=== PATIENT | female | born 1935 | race Caucasian/White ===

== ENCOUNTER 2018-11-24 12:56 | Emergency (ER) | payer MEDICARE, OTHER ==
[~2018-11-24] VITALS: Ht 157.5 cm; Wt 63.5 kg
[~2018-11-24 12:56] MED LIST: ALEN70 PO; ALPR.5 PO; AMLO5 PO; ASPI81EC PO; CALCAVITD PO; ENOX120I SQ; ERGO400 PO; GABA100 PO; HYDACE5325 PO; HYDCHL12.5 PO; LEVSOD100 PO; LISI20 PO; LOVA40 PO; MORP15ER PO; PRED10 PO; WARF5 PO
[2018-11-24 13:42] LABS: BASOPHILS ABSOLUTE AUTO 0.03 K/mm3 (0.00-0.23); BASOPHILS PERCENT AUTO 0 % (0-2); EOSINOPHILS ABSOLUTE AUTO 0.06 K/mm3 (0.00-0.68); EOSINOPHILS PERCENT AUTO 1 % (0-6); Hematocrit 42.1 % (33.0-51.0); Hemoglobin 13.2 g/dL (11.5-16.0); IMMATURE GRAN ABSOLUTE AUTO 0.02 K/mm3 (0.00-0.10); IMMATURE GRAN PERCENT AUTO 0 % (0-1); LYMPHOCYTES ABSOLUTE AUTO 1.98 K/mm3 (0.84-5.20); LYMPHOCYTES PERCENT AUTO 23 % (21-46); MONOCYTES PERCENT AUTO 7 % (4-13); Mean Corpuscular HGB 28.7 pg (26.0-34.0); Mean Corpuscular HGB Conc 31.4 g/dL (31.5-36.5); Mean Corpuscular Volume 92 fL (80-100); Mean Platelet Volume 10.7 fL (9.1-12.4); NEUTROPHILS ABSOLUTE AUTO 5.87 K/mm3 (1.96-9.15); NEUTROPHILS PERCENT AUTO 69 % (41-73); Platelet Count 272 K/mm3 (150-400); RDW Coefficient Variation 14.2 % (11.7-14.2); RDW Standard Deviation 47.8 fL (35.1-46.3); White Blood Cell Count 8.56 K/mm3 (4.00-11.30)
[2018-11-24 14:28] LABS: Alanine Aminotransfer (ALT/SGP 21 U/L (12-78); Albumin, Blood 3.6 g/dL (3.4-5.0); Albumin/Globulin Ratio 1.1 (0.8-1.8); Alk Phos 83 U/L (50-136); Anion Gap 6 mmol/L (6-16); Aspartate Aminotrans (AST/SGOT 17 U/L (12-37); Bilirubin, Total 0.5 mg/dL (0.1-1.0); Blood Urea Nitrogen 28 mg/dL (8-24); Bun/Creatinine Ratio 29.9 (12.0-20.0); CO2, Blood 29 mmol/L (21-32); Calcium, Blood 9.4 mg/dL (8.5-10.1); Chloride, Blood 108 mmol/L (98-108); Creatinine, Blood 0.94 mg/dL (0.40-1.00); Globulin, Blood 3.4 g/dL (2.2-4.0); Glomerular Filtration Rate >60 (60-); Glucose, Blood 185 mg/dL (70-99); Potassium, Blood 3.6 mmol/L (3.5-5.5); Sodium, Blood 143 mmol/L (136-145)
[2018-11-24 14:49] LABS: Source, Urine Clean Catch
[2018-11-24 14:53] LABS: Appearance, Urine Turbid (Clear); Bilirubin, Urine Neg (Neg); Blood, Urine 5+ (Neg); Color, Urine Red (P-Yellow); Glucose Qualitative, Urine Neg (Neg); Ketones, Urine 1+ (Neg); Leukocyte Esterase, Urine Neg (Neg); Nitrite, Urine Neg (Neg); Protein, Urine 3+ (Neg); Specific Gravity, Urine 1.025 (1.003-1.022); Urobilinogen, Urine NORM (Normal)
[2018-11-24 15:04] LABS: Bacteria Mod /hpf; Red Blood Cells, Urine TNTC /hpf (0-2); Squamous Epithelial Cells Rare /hpf (Few); White Blood Cells, Urine Not Seen /hpf (0-5)
[2018-11-24] MEDS ORDERED: CEFP200 PO (17:03)
== END 2018-11-24 17:25 | disposition home or self-care (01) ==
LOC: ER 12:56
PROVIDERS: Physician Assistant
DX: N30.91 Cystitis, unspecified with hematuria (principal); I10 Essential (primary) hypertension; E03.9 Hypothyroidism, unspecified; E78.00 Pure hypercholesterolemia, unspecified; Z79.899 Other long term (current) drug therapy; Z79.82 Long term (current) use of aspirin
CPT/HCPCS: 36415; 76770; 80053; 81001; 85025; 86850; 86900; 86901; 99284-25; A9270-GY

== ENCOUNTER 2021-05-15 16:14 | Emergency (ER) | payer MEDICARE, OTHER ==
[~2021-05-15] VITALS: Ht 170.2 cm; Wt 72.6 kg
[~2021-05-15 16:14] MED LIST changes: +CEFP200 PO
[2021-05-15 16:57] LABS: BASOPHILS ABSOLUTE AUTO 0.03 K/mm3 (0.00-0.23); BASOPHILS PERCENT AUTO 0 % (0-2); EOSINOPHILS ABSOLUTE AUTO 0.12 K/mm3 (0.00-0.68); EOSINOPHILS PERCENT AUTO 2 % (0-6); Hematocrit 36.4 % (33.0-51.0); Hemoglobin 11.3 g/dL (11.5-16.0); IMMATURE GRAN ABSOLUTE AUTO 0.02 K/mm3 (0.00-0.10); IMMATURE GRAN PERCENT AUTO 0 % (0-1); LYMPHOCYTES PERCENT AUTO 15 % (21-46); MONOCYTES ABSOLUTE AUTO 0.81 K/mm3 (0.16-1.47); MONOCYTES PERCENT AUTO 11 % (4-13); Mean Corpuscular HGB 27.6 pg (26.0-34.0); Mean Corpuscular Volume 89 fL (80-100); Mean Platelet Volume 10.1 fL (9.1-12.4); NEUTROPHILS ABSOLUTE AUTO 5.17 K/mm3 (1.96-9.15); NEUTROPHILS PERCENT AUTO 71 % (41-73); Platelet Count 234 K/mm3 (150-400); RDW Coefficient Variation 15.3 % (11.7-14.2); Red Blood Cell Count 4.09 M/mm3 (3.80-5.20); White Blood Cell Count 7.25 K/mm3 (4.00-11.30)
[2021-05-15 17:13] LABS: Alanine Aminotransfer (ALT/SGP 24 U/L (12-78); Albumin, Blood 3.2 g/dL (3.4-5.0); Alk Phos 92 U/L (50-136); Anion Gap 3 mmol/L (6-16); Aspartate Aminotrans (AST/SGOT 22 U/L (12-37); Bilirubin, Total 0.2 mg/dL (0.1-1.0); Blood Urea Nitrogen 24 mg/dL (8-24); Bun/Creatinine Ratio 24.8 (12.0-20.0); CO2, Blood 28 mmol/L (21-32); Calcium, Blood 8.8 mg/dL (8.5-10.1); Chloride, Blood 112 mmol/L (98-108); Creatinine, Blood 0.97 mg/dL (0.40-1.00); Globulin, Blood 3.3 g/dL (2.2-4.0); Glomerular Filtration Rate 55 (60-); Glucose, Blood 113 mg/dL (70-99); Potassium, Blood 3.8 mmol/L (3.5-5.5); Sodium, Blood 143 mmol/L (136-145); Total Protein, Blood 6.5 g/dL (6.4-8.2); Troponin I <0.015 ng/mL (0.000-0.040)
== END 2021-05-15 19:09 | disposition home or self-care (01) ==
LOC: ER 16:14
PROVIDERS: Physician Assistant
DX: F41.9 Anxiety disorder, unspecified (principal); R55 Syncope and collapse; F03.90 Unspecified dementia, unspecified severity, without behavioral disturbance, psychotic disturbance, mood disturbance, and anxiety; I10 Essential (primary) hypertension; E03.9 Hypothyroidism, unspecified; E78.5 Hyperlipidemia, unspecified; M81.0 Age-related osteoporosis without current pathological fracture; Z88.5 Allergy status to narcotic agent; Z79.82 Long term (current) use of aspirin; Z79.899 Other long term (current) drug therapy
CPT/HCPCS: 71045; 80053; 83880; 84484; 85025; 93005; 93010; 99285-25

== ENCOUNTER 2021-12-26 21:18 | Observation (INO) | payer MEDICARE, OTHER ==
[~2021-12-26] VITALS: Ht 157.5 cm; Wt 78.9 kg
[~2021-12-26 21:18] MED LIST changes: +ASPI81CH PO; -ASPI81EC PO
[2021-12-26 22:01] LABS: BASOPHILS ABSOLUTE AUTO 0.05 K/mm3 (0.00-0.23); BASOPHILS PERCENT AUTO 1 % (0-2); EOSINOPHILS ABSOLUTE AUTO 0.12 K/mm3 (0.00-0.68); EOSINOPHILS PERCENT AUTO 1 % (0-6); Hemoglobin 12.2 g/dL (11.5-16.0); IMMATURE GRAN ABSOLUTE AUTO 0.08 K/mm3 (0.00-0.10); IMMATURE GRAN PERCENT AUTO 1 % (0-1); LYMPHOCYTES ABSOLUTE AUTO 1.75 K/mm3 (0.84-5.20); LYMPHOCYTES PERCENT AUTO 16 % (21-46); MONOCYTES ABSOLUTE AUTO 0.73 K/mm3 (0.16-1.47); MONOCYTES PERCENT AUTO 7 % (4-13); Mean Corpuscular HGB Conc 32.1 g/dL (31.5-36.5); Mean Corpuscular Volume 87 fL (80-100); Mean Platelet Volume 10.1 fL (9.1-12.4); NEUTROPHILS ABSOLUTE AUTO 8.28 K/mm3 (1.96-9.15); NEUTROPHILS PERCENT AUTO 75 % (41-73); Platelet Count 318 K/mm3 (150-400); RDW Coefficient Variation 14.6 % (11.7-14.2); RDW Standard Deviation 46.9 fL (35.1-46.3); Red Blood Cell Count 4.35 M/mm3 (3.80-5.20); White Blood Cell Count 11.01 K/mm3 (4.00-11.30)
[2021-12-26 22:26] LABS: Albumin, Blood 3.2 g/dL (3.4-5.0); Albumin/Globulin Ratio 0.9 (0.8-1.8); Bilirubin, Total 0.2 mg/dL (0.1-1.0); Calcium, Blood 9.1 mg/dL (8.5-10.1); Creatinine, Blood 0.88 mg/dL (0.40-1.00); Globulin, Blood 3.6 g/dL (2.2-4.0); Total Protein, Blood 6.8 g/dL (6.4-8.2)
[2021-12-26 23:04] LABS: Source, Urine Straight Cath
[2021-12-26 23:06] LABS: Appearance, Urine Hazy (Clear); Bilirubin, Urine Neg (Neg); Blood, Urine 1+ (Neg); Color, Urine Yellow (P-Yellow); Glucose Qualitative, Urine Neg (Neg); Ketones, Urine Neg (Neg); Leukocyte Esterase, Urine 2+ (Neg); Nitrite, Urine Neg (Neg); Protein, Urine 2+ (Neg); Specific Gravity, Urine 1.015 (1.003-1.022); Urobilinogen, Urine NORM (Normal)
[2021-12-26 23:16] LABS: Hyaline Casts 0-2 /lpf (0-2); White Blood Cells, Urine 25-50 /hpf (0-5)
[2021-12-26 23:17] LABS: Bacteria Many /hpf; Red Blood Cells, Urine 0-2 /hpf (0-2); Squamous Epithelial Cells Few /hpf (Few); Transitional Epithelial Cells Rare /hpf (0-Rare)
[2021-12-27] MEDS ORDERED: CEFD300 PO (01:43)
[2021-12-27 05:43] LABS: Cholesterol 213 mg/dL (50-200); HDL Cholesterol 70 mg/dL (>39); LDL/HDL RATIO 1.7; Low Density Lipoprotein Chol 121 mg/dL (0-110); Triglycerides 112 mg/dL (30-160); Very Low Density Lipoprot Chol 22 mg/dL (6-32)
[2021-12-27] MEDS ORDERED: CENTRUM SILVER1 EAC2 PO (13:37)
[2021-12-27] MEDS ORDERED: Voltaren100 GM TOP (13:37)
[2021-12-27] MEDS ORDERED: EUTHYROX88 MCG PO (13:38)
[2021-12-27] MEDS ORDERED: MELATONIN5 M1 PO (13:39)
[2021-12-27] MEDS ORDERED: QUET100 PO (13:41)
[2021-12-27] MEDS ORDERED: ALBU90OI INH (13:41)
[2021-12-27] MEDS ORDERED: ACET325 PO (13:43)
--- NOTE | 2021-12-27 14:04 | NUR ---
PACEMAKER CHECKED PER ER DR'S ORDER, APPEARS WORKING NORMALLY, Ap 87%, Head Of Stock 0%. No alerts, AF<0.1%. Sending [place]/[facility] report to Dr James for review.
--- NOTE | 2021-12-27 16:20 | NUR ---
Spiritual care consult received and processed. Pt is lying in bed and shaking and crying when I enter pt's rm. Pt explains about her concerns with her health, her family leaving her, her Hammad's recent demise and her fears about the future. 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 She explains about her loss of livier since her 's . Everything I mention to her about her brand of livier she states that she already knows but then she stops shaking and then she stops crying and then she starts finishing the scriptures that I was quoting and she even manages a smile or two. Then the icing on the cake is that her son walks in the rm and pt cries with tonya. I provide prayer for pt while Swapnil and his spouse are present. Pt voices appreciation. I will continue to remain available.
--- NOTE | 2021-12-27 19:33 | NUR ---
SHIFT SUMMARY PATIENT A&O TO SELF AND FAMILY ONLY. PATIENT CONTINUALLY TAKING OFF TELE MONITOR AND TRYING TO GET OUT OF BED. VERY ANXIOUS AND EMOTIONAL. MEDICATED WITH XANAX. RIGHT FOOT 5TH METATARSAL FX, PODIATRY CONSULTED. SKIN TEAR ON LEFT ELBOW DRESSING CHANGED. VSS. REPORT GIVEN TO ONCOMING RN.
[2021-12-28 05:59] LABS: BASOPHILS ABSOLUTE AUTO 0.03 K/mm3 (0.00-0.23); BASOPHILS PERCENT AUTO 0 % (0-2); EOSINOPHILS ABSOLUTE AUTO 0.16 K/mm3 (0.00-0.68); EOSINOPHILS PERCENT AUTO 2 % (0-6); Hematocrit 36.3 % (33.0-51.0); Hemoglobin 11.5 g/dL (11.5-16.0); IMMATURE GRAN ABSOLUTE AUTO 0.05 K/mm3 (0.00-0.10); IMMATURE GRAN PERCENT AUTO 1 % (0-1); LYMPHOCYTES PERCENT AUTO 13 % (21-46); MONOCYTES ABSOLUTE AUTO 0.77 K/mm3 (0.16-1.47); MONOCYTES PERCENT AUTO 9 % (4-13); Mean Corpuscular HGB 28.3 pg (26.0-34.0); Mean Corpuscular HGB Conc 31.7 g/dL (31.5-36.5); Mean Corpuscular Volume 89 fL (80-100); Mean Platelet Volume 10.1 fL (9.1-12.4); NEUTROPHILS ABSOLUTE AUTO 6.51 K/mm3 (1.96-9.15); NEUTROPHILS PERCENT AUTO 76 % (41-73); Platelet Count 238 K/mm3 (150-400); RDW Coefficient Variation 14.8 % (11.7-14.2); RDW Standard Deviation 48.9 fL (35.1-46.3); Red Blood Cell Count 4.07 M/mm3 (3.80-5.20); White Blood Cell Count 8.62 K/mm3 (4.00-11.30)
--- NOTE | 2021-12-28 06:04 | NUR ---
SHIFT SUMMARY A/OX2, EASILY REDIRECTABLE. 2 MAX ASSIST WITH GB TO BSC. VSS, NO ACUTE CHANGES AT THIS TIME. BED IN LOWEST POSITION WITH CALL LIGHT IN REACH. WILL CONTINUE TO MONITOR AND REPORT TO ONCOMING RN.
[2021-12-28 06:21] LABS: Bun/Creatinine Ratio 21.7 (12.0-20.0); Calcium, Blood 8.9 mg/dL (8.5-10.1); Creatinine, Blood 0.79 mg/dL (0.40-1.00); Potassium, Blood 3.9 mmol/L (3.5-5.5)
--- NOTE | 2021-12-28 14:00 | NUR ---
RN NOTE I SPOKE TO DR OROSCO TO CLARIFY [facility] STATE FOR PT. MAY TRANSFER TO [facility] BUT NON-WEIGHT [facility] FOR AMBULATION. MAY D/C TELE.
--- NOTE | 2021-12-28 19:00 | NUR ---
[id number] SHIFT SUMMARY MS RUIZ IS ALERT, ORIENTATED TO SELF ONLY WITH HISTORY OF DEMENTIA. NO RESP DISTRESS, NO CP. TELEMETRY DISCONTINUED AT 1340HRS. PT CONFUSED AND FREQUENTLY REORIENTATED. BED ALARM ON FOR PT SAFETY. SKIN ABRASION AND BRUISING TO LEFT ARM WITH MEPIEX DRESSING ON. MS RUIZ HAS ANXIOUS BEHAVIOUR - HELPED WITH MEDICATIONS. ATIVAN AND TYLENOL HELPED HER TO SEEM MORE COMFORTABLE THIS AFTERNOON. SHE WORKED WITH OT AND PT TODAY. FAMILY EAGER TO HAVE PT DISCHARGE TO THE [facility] WITH HOME HEALTH AND THEY SAID THEY HAVE COMMODE, WC AND SHOWER CHAIR AVAILABLE FOR HER. PNEUMATIC WALKING BOOT ORDERED - PASSED ONTO NURSES FOR ORDER 12/29. 2 PERSON ASSIST FOR TURNS AND TRANSFER TO BSC. BED LOW, CALL LIGHT IN REACH.
--- NOTE | 2021-12-29 07:27 | NUR ---
SHIFT SUMMARY - NO ACUTE CHANGES THROUGHOUT THIS SHIFT. PT DOES GET ANXIOUS WHEN UP WITH 1-2 PERSON ASSIST TO BSC - MEDICATED THIS AM WITH XANAX FOR ANXIETY. PT HAS DEMENTIA. PT CONTINUES WITH CONFUSION AT TIMES - NOT SURE WHERE SHE IS - BUT REORIENTED EASILY. REPORTED TO AM SHIFT THAT PT NEEDS A PNEUMATIC BOOT BEFORE DISCHARGE HOME TO THE THE [facility] WITH HOME HEALTH TODAY. ALSO REQUESTED AM SHIFT CLARIFY PODIATRY CONSULT VS ORTHO CONSULT ( ORTHO CONSULT WAS NEVER CALLED IN.) CALL LIGHT WITHIN REACH. BED IN LOW POSITION. BED ALARM ON FOR SAFETY. FLUIDS AT BEDSIDE.
--- NOTE | 2021-12-29 13:12 | NUR ---
Patient is in bed with the head of the bed raised but she is sleeping. She easily awakens to the sound of her name. She tells me that she may transfer to a SNF soon. She tells me her fears about this and she also states that she fears that her family will forget about her. As I have met a couple of family members, I assure her of their love and commitment to continued support. Patient very much appreciates prayer and so I gladly provide prayer. Pt shows signs of being encouraged in her livier and of decreased stress. I will continue to remain available to patient and family.
--- NOTE | 2021-12-29 16:36 | NUR ---
DISCHARGE PATIENT TRANSPORTED VIA WHEELCHAIR BY [facility] TO [facility] PATIENT L[facility]. DISCHARGE INSTRUCTIONS AND MEDICATIONS FAXED TO [facility]. BELONGINGS SENT WITH PATIENT. IV REMOVED WITHOUT DIFFICULTY. PNEUMONTIC WALKING CAST/BOOT SENT WITH PATIENT.
[2021-12-30] MEDS ORDERED: CEFD300 PO (14:23)
[2021-12-30] MEDS ORDERED: LISI20 PO (14:25)
[2021-12-30] MEDS ORDERED: LOPE2C PO (14:26)
[2021-12-30] MEDS ORDERED: SERT100 PO (14:27)
[2021-12-30] MEDS ORDERED: HYDR1TAB94 PO (17:15)
== END 2021-12-29 16:30 | disposition home health service (06) ==
LOC: ER 21:18 → MEDS 21:19
PROVIDERS: Family Medicine; Student in an Organized Health Care Education/Training Program; ADMIT Family Medicine
DX: S32.039A Unspecified fracture of third lumbar vertebra, initial encounter for closed fracture (principal); S32.049A Unspecified fracture of fourth lumbar vertebra, initial encounter for closed fracture; S92.351A Displaced fracture of fifth metatarsal bone, right foot, initial encounter for closed fracture; W18.30XA Fall on same level, unspecified, initial encounter; E03.9 Hypothyroidism, unspecified; I10 Essential (primary) hypertension; E78.5 Hyperlipidemia, unspecified; J45.909 Unspecified asthma, uncomplicated; Z86.718 Personal history of other venous thrombosis and embolism; Z88.5 Allergy status to narcotic agent; Z79.899 Other long term (current) drug therapy; R77.8 Other specified abnormalities of plasma proteins
CPT/HCPCS: 36415; 70450; 71260; 72125; 73070; 73600; 73630; 74177; 80048; 80053; 80061; 81001; 82550; 83880; 84443; 84484; 85025; 87077; 87086; 87186; 93005; 93010; 93280; 93306; 93970; 94760; 96372; 96374; 96375; 97116; 97162; 97165; 97530; 97535; 99285-25; A9270; G0378; J0696; J1650; J1885; J2270; Q9967

== ENCOUNTER 2021-12-30 13:21 | Inpatient (IN) | payer MEDICARE, OTHER ==
[~2021-12-30] VITALS: Ht 157.5 cm; Wt 78.0 kg
[~2021-12-30 13:21] MED LIST changes: +ACET325 PO; +ALBU90OI INH; +CEFD300 PO; +CENTRUM SILVER1 EAC2 PO; +EUTHYROX88 MCG PO; +MELATONIN5 M1 PO; +QUET100 PO; +Voltaren100 GM TOP
[2021-12-30] MEDS ORDERED: CEFD300 PO (14:23)
[2021-12-30] MEDS ORDERED: LISI20 PO (14:25)
[2021-12-30] MEDS ORDERED: LOPE2C PO (14:26)
[2021-12-30] MEDS ORDERED: SERT100 PO (14:27)
[2021-12-30] MEDS ORDERED: HYDR1TAB94 PO (17:15)
[2021-12-30 22:43] LABS: BASOPHILS ABSOLUTE AUTO 0.02 K/mm3 (0.00-0.23); BASOPHILS PERCENT AUTO 0 % (0-2); EOSINOPHILS ABSOLUTE AUTO 0.15 K/mm3 (0.00-0.68); EOSINOPHILS PERCENT AUTO 2 % (0-6); Hematocrit 33.4 % (33.0-51.0); Hemoglobin 10.5 g/dL (11.5-16.0); IMMATURE GRAN PERCENT AUTO 1 % (0-1); LYMPHOCYTES ABSOLUTE AUTO 1.23 K/mm3 (0.84-5.20); LYMPHOCYTES PERCENT AUTO 13 % (21-46); MONOCYTES ABSOLUTE AUTO 0.94 K/mm3 (0.16-1.47); MONOCYTES PERCENT AUTO 10 % (4-13); Mean Corpuscular HGB 28.2 pg (26.0-34.0); Mean Corpuscular HGB Conc 31.4 g/dL (31.5-36.5); Mean Corpuscular Volume 90 fL (80-100); Mean Platelet Volume 10.3 fL (9.1-12.4); NEUTROPHILS ABSOLUTE AUTO 7.23 K/mm3 (1.96-9.15); NEUTROPHILS PERCENT AUTO 75 % (41-73); Platelet Count 245 K/mm3 (150-400); RDW Coefficient Variation 14.7 % (11.7-14.2); RDW Standard Deviation 48.2 fL (35.1-46.3); Red Blood Cell Count 3.73 M/mm3 (3.80-5.20); White Blood Cell Count 9.67 K/mm3 (4.00-11.30)
[2021-12-30 23:01] LABS: Albumin, Blood 2.6 g/dL (3.4-5.0); Albumin/Globulin Ratio 0.8 (0.8-1.8); Bilirubin, Total 0.5 mg/dL (0.1-1.0); Bun/Creatinine Ratio 34.7 (12.0-20.0); Calcium, Blood 8.3 mg/dL (8.5-10.1); Creatinine, Blood 0.98 mg/dL (0.40-1.00); Globulin, Blood 3.4 g/dL (2.2-4.0); Potassium, Blood 4.3 mmol/L (3.5-5.5)
[2021-12-31] MEDS ORDERED: CALCIUM/VIT D3 PO (00:35)
[2021-12-31 07:40] LABS: Source, Urine Foley catheter
[2021-12-31 08:05] LABS: Bilirubin, Urine Neg (Neg); Blood, Urine 2+ (Neg); Glucose Qualitative, Urine Neg (Neg); Ketones, Urine Neg (Neg); Leukocyte Esterase, Urine 1+ (Neg); Nitrite, Urine Neg (Neg); Protein, Urine 2+ (Neg); Urobilinogen, Urine NORM (Normal)
[2021-12-31 08:18] LABS: Appearance, Urine Hazy (Clear); Color, Urine Yellow (P-Yellow)
[2021-12-31 08:21] LABS: Bacteria Rare /hpf; Red Blood Cells, Urine 0-2 /hpf (0-2); Squamous Epithelial Cells Few /hpf (Few)
--- NOTE | 2021-12-31 08:29 | NUR ---
NEW ADMISSION FROM ER. PATIENT NOTED WITH SEVERE PAIN WITH ANY MOVEMENT. ALERT TO SELF AT BASELINE. MD NOTIFIED REGARDING SEVERE PAIN AND ORDER FOR PRN FENTANYL OBTAINED. PT MEDICATED WITH 50 MCG OF FENTANYL PRIOR TO MOVING HOWEVER PT STILL IN EXTREME PAIN. MD NOTIFIED WITH ORDER FOR DILAUDID AND PER MD OKAY TO HAVE WITH PT ALLERGY TO CODEINE. SANCHEZ IN PLACE DRAINING. BOOT REMOVED TO RIGHT FOOT FOR ASSESSMENT AND ELEVATED ON PILLOW. AFTER RECEIVING DILAUDID PT OXYGEN NOTED 87-90% PLACED ON 2L WITH GOOD SATURATIONS. ENDORSED TO MORNING RN REGARDING PT NEEDING BETTER PAIN MANAGEMENT SHE ONLY HAS FENTANYL PRN Q4H AND TYLENOL.
--- NOTE | 2021-12-31 18:27 | NUR ---
SHIFT SUMMARY PATIENT A&O TO SELF AND FAMILY. PATIENT HAS SEVERE ANXIETY AND PAIN. MEDICATED PER MAR. PATIENT REFUSING REPOSITIONING MOST OF SHIFT OUT OF PAIN AND FEAR. ONLY ABLE TO TOLERATE BEING REPOSITIONED 2 TIMES. SANCHEZ CATHETER IN PLACE DRAINING TO GRAVITY VANDANA COLOR URINE. FAMILY AT BEDSIDE SPORADICALLY T/O SHIFT. PATIENT HAD PREVIOUS ADMISSION FROM A FALL RECENTLY WITH L ELBOW AND RIGHT 5TH METATARSAL FX. DRESSING IN PLACE TO ELBOW AND BOOT PLACED ON RIGHT LEG. WILL CONTINUE TO MONITOR.
--- NOTE | 2021-12-31 18:32 | NUR ---
FAMILY REQUESTING THAT IF SHE GOES TO A SNF THEY WANT [facility].
--- NOTE | 2022-01-01 04:24 | NUR ---
PATIENT ALERT TO SELF. PT ABLE TO REST BETTER AND BE TURNED WITH CURRENT PAIN REGIMEN. PT STILL HAS SEVERE PAIN WHEN TURNING/MOVING HOWEVER THIS RESOLVES SHORTLY ONCE PATIENT LAYS STILL. DRESSING TO SKIN TEAR ON LEFT ARM CHANGED AND PIC IN CHART. PT ENCOURAGED TO DRINK WATER THROUGHOUT SHIFT. OF NOW PT SANCHEZ OUTPUT THIS SHIFT 200 ML. WILL ENDORSE TO ONCOMING RN.
--- NOTE | 2022-01-01 11:48 | NUR ---
MEDICATING PATIENT PER MAR FOR PAIN CONTROL. PATIENT IS ONLY ABLE TO TOLERATE VERY SMALL MOVEMENTS AT A TIME. WHEN REPOSITIONING PATIENT CRIES OUT IN PAIN, EVEN AFTER BEING MEDICATED. PATIENT OCCASIONALLY REFUSING TO BE REPOSITIONED.
--- NOTE | 2022-01-01 18:20 | NUR ---
SHIFT SUMMARY PATIENT A&O TO SELF. CONTINUALLY NEEDS REMINDED WHY SHE HURTS. PATIENT HAS ANXIETY AT BASELINE AND IS INCREASED WITH HER PAIN. PATIENT ABLE TO WIGGLE TOES AND SLIGHTLY MOVE FEET BUT UNABLE TO MOVE LEGS OR REPOSITION SELF. PAINFUL DURING REPOSITIONING EVEN WHEN PREMEDICATED PATIENT CRIES OUT TO STOP. PAIN MEDICATION CHANGED TO A SCHEUDLED REGIMENT FOR HOPEFULLY BETTER PAIN CONTROL. SANCHEZ IN PLACE DRAINING TO GRAVITY DARK URINE. IV FLUIDS STARTED. NO BM. SOFT BP IN EVENING. OTHER VSS. WILL CONTINUE TO MONITOR.
--- NOTE | 2022-01-02 06:31 | NUR ---
PT MEDICATED PER SEP HOWEVER DID NEED DILAUDID IV X3. PT PAIN SEEMS TO BE BETTER RELIEVED BY DILAUDID. SHE CONTINUES TO BE IN SEVERE PAIN WHEN TURNING HER OR SIMPLY LIFTING LEGS. PT ALSO VERY ANXIOUS. THERAPEUTIC COMMUNICATION GIVEN AND PT WITH MINIMAL EQUINE VET. PT SANCHEZ IN PLACE DRAINING.
--- NOTE | 2022-01-02 18:26 | NUR ---
PATIENT RESTED WELL TODAY, BUT CONTINUES TO HAVE SEVERE PAIN WITH ANY CHANGE OF POSITION. MEDICATING WITH SCHEDULED TYLENOL AND OXYCODONE. NO BOWEL CARE ORDERED AND PATIENT DID NOT HAVE A BM THIS SHIFT. TOLERATING DIET, BUT NEEDS ASSISTANCE WITH MEALS. SANCHEZ TO GRAVITY, ADEQUATE U/O. REPOSITONING Q2 HOURS, HEELS FLOATED ON PILLOW. 20G IV TO L AC WNL, NS @75ML/HR INFUSION. FALL PRECAUTIONS IN PLACE, PATIENT CONFUSED AND DOES NOT USE CALL LIGHT APPROPRIATELY FOR ASSISTANCE.
--- NOTE | 2022-01-03 03:44 | NUR ---
SHIFT SUMMARY PT NOTED WITH IMPROVED PAIN MANAGEMENT THIS SHIFT. PAIN STILL PRESENT WITH MOVEMENT HOWER SHORTLY RESOLVES ONCE AT REST. PT ABLE TO SLEEP THIS SHIFT AND NOTED LESS ANXIOUS. CATHETER CARE DONE AND SANCHEZ DRAINING W/O ISSUES.
--- NOTE | 2022-01-03 17:28 | NUR ---
PATIENT A/O TO SELF AND FAMILY ONLY. VSS THIS SHIFT, ON 2LO2 TO MAINTAIN SATS. CONTINUES TO BE VERY PAINFUL WITH ANY MOVEMENT. DID SIT AT SIDE OF BED WITH OT TODAY, BUT DID NOT TOLERATE. SCHEDULED PAIN MEDICATION AND PRN DILAUDID GIVEN X2 TODAY TO CONTROL PAIN. FENTANYL PATCH ORDER AND PLACED ON R CHEST. TURNING Q2 HOURS AND FLOATING HEELS. SANCHEZ TO GRAVITY WITH ADEQUATE U/O. 22G IV TO L AC AC WNL. NS @ 75ML/HR INFUSING. FALL PRECAUTIONS IN PLACE. CODE STATUS TODAY CHANGED TO DNR. APPETITE REMAINS POOR, NEEDS ASSISTANCE WITH MEALS.
--- NOTE | 2022-01-03 17:32 | NUR ---
CHANGE IN CODE STATUS to DNR per family request in accordance with updated AD they have been working on with Add[facility] at [facility]. FAMILY CONTACTS-Karena Matson General POA.[place] [phone] ( days) LOCAL - Medical POA sonKaylyn [phone] or [phone] works nights LOCAl - Son Swapnil( also works nights) and JACQUELINE Honeycutt [phone] Summary of Case conferences t/o the day with blanket winder operator, CM, bedside RN, and pt's Karena matson. Pt has has multiple recent falls resulting in fx toe, compression fx of spine and now pelvic fx. She is experiencing severe pain with any attempt at mobility or change of position and has been unable to work with PT/OT. She has a PMH of advanced dementia, HTN, Hypothyroid, osteoporosis, Pacemaker. In reviewing labs, Low albumin of 2.6 noted. Pt currently is total care/assist for all ADL's, meals, etc. She does not remember falling, why she hurts or recent events. She resides at the [facility], memory care facility. See above family contacts. Her son, Swapnil and JACQUELINE Honeycutt are local and have been the one to take her to her medical appointments in recent times. Karena Matson lives in [place] and is her general POA. Son Kaylyn is her official medical POA. Dano reports they all work together and are all in agreement. They have been working on updating pt's advanced care planning directive to be in accordance with what they're mother asked of them years ago. Karena states pt is a DNR and family wants to allow a natural if she declines and focus on comfort. I reviewed the pt's recent quality of life and trajectory of her chronic illnessess with current events indicating she is in a declining phase. Plan currently is to have pt return to [facility] if they are agreeable with OT/PT/nursing support from . If pt is unable to improve and enjoy a level of comfort or QOL near her previous level they would like to transition her to hospice care. Karena verbalized understanding of my review of complications of immobility, freq falls, poor PO intake and growing protein calorie malnutrition. Report on above to pt's , RN and CM for ongoing d/c planning and advanced care planning for Nora. Pt has had a very difficult day per bedside RN, due to pain and activity intolerance. Dr has started a duragesic patch and goal at this time is to get pain well managed so pt can participate with therapy and move towards transfer back to her familiar faciltiy. She was sleeping when I went by to visit. Will assess for s/s in am.
--- NOTE | 2022-01-04 06:17 | NUR ---
SHIFT SUMMARY - PT PAINFUL WITH ANY REPOSITIONING - MEDICATED PER EMAR. PT SLEPT THROUGHOUT MOST OF THE NIGHT, AWAKENS EASILY WHEN SPOKEN TO. MEDS GIVEN IN APPLESAUCE. ATTEMPTED ICE WATER WITH A STRAW - PT UNABLE TO COORDINATE SUCKING OUT OF THE STRAW. PT ALERT TO PERSON, AND IS ABLE TO FOLLOW SOME INSTRUCTIONS GIVEN. CONTINUOUS BIOX ON - 3L O2 ON VIA NC - SATS WNL THROUGHOUT THE NIGHT. NORMAL SALINE INFUSING AT 75 CC HOUR TO LEFT AC IV SITE WITHOUT COMPLICATIONS. BED IN LOW POSITION. WILL CONTINUE TO MONITOR UNTIL AM SHIFT CHANGE.
--- NOTE | 2022-01-04 09:01 | NUR ---
Spiritual Care Request by floor nurse. Pt. is in bed and is in visceral pain. 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 Nurse requested as Pt. was in great physical distress and calling out to God. With calming presence attempted to slow Pts. breathing, with calming breath excercises. Prayed with Pt. Read scripture. Have confirmed that Palliative care is on the case. Will remain available to staff and Pt.
--- NOTE | 2022-01-04 10:55 | NUR ---
Review of EMR and case conferenced with pt's bedside RN this am. Initially, pt was lying quietly in bed after agressive intervention for pain control per pt's RN earlier this am. Pt started to cry out and nurse and I went into the room. Pt appears very anxious, stating "I don't know what I'm doing". She has deeply furrowed brow, looks worried and scared. She was reassured by both RN and me. RN went to get pt another warm blanket due to pt report of cold hands and shaking. Pt did not answer when I asked her if she was hurting. She is demonstrating nonverbal indicators of pain, anxiety and distress. Senior Trainer was in earlier when she was having horrific pain and crying out with any attempt to reposition for comfort. RN outlined her plan for use of antianxiety rx prn, premedication with analgesics per eMAR prior to turning next time and admin of suppository for bowel program. Pt has not had BM for several days per RN. This may be contributing to pressure and pain in pelvic area. Pt is not able to work with PT this am due to extreme pain. Pt has castro draining yellow urine. She accepted offer of water. She did not eat any breakfast this am. RN noted nonverbal indicators of nausea, diaphoresis with admin of analgesics PO and IV earlier this am. T/c to with report of visit and VO obtained and entered for Zofran ODT and phenergan DE prn nausea.
--- NOTE | 2022-01-04 14:15 | NUR ---
Return t/c received from pt's Dano Karena. She is currently at work but will make contact with two of her brothers who live locally and get back to us with an answer re: goals of care. She expressed again today, as she did yesterday that their primary goal is for their mom to be comfortable. They are not interested in prolonging life if she is in pain. I discussed hospice, d/c planning with her briefly. I gave her the CM's direct number and I called Marlen SHAY, to update her on all of above and my conversation with earlier. She will contact [facility] and hospice agencies for coordination of d/c planning if family choses comfort care at this time. Dano made aware that pt is too painful to work with therapy or to have any interest in food. Dano had questions re: DME at [facility] and I explained Medicare Hospice benefit to answer her questions, re: DME, comfort care medications and hosice staff visits included under hospice benefit.
--- NOTE | 2022-01-04 17:58 | NUR ---
SHIFT SUMMARY: PATIENT IN SEVERE PAIN AT START OF SHIFT AFTER BEING REPOSITIONED; CRYING OUT, HYPERVENTILATING, GUARDING, RECOILING FROM ANY TOUCH. GAVE PAIN AND ANXIETY MEDICATIONS THAT WERE DUE, WHICH GAVE HER A LITTLE RELIEF, BUT IT TOOK A COUPLE OF HOURS FOR HER TO CALM DOWN. DID NOT EAT ANY MEALS TODAY, WILL DRINK WATER AT TIMES, TAKES PILLS IN APPLESAUCE. WAS ABLE TO SLEEP FROM ~11-1330 UNTIL REPOSITIONED AND SUPPOSITORY GIVEN. LBM 6-MAY NEED ENEMA TOMORROW BM TODAY WAS ONE SMALL HARD STOOL AND THE REST LIQUID. ABDOMEN STILL FIRM, STOOL BURDEN MAY BE CONTRIBUTING TO HER PAIN. SEVERE PAIN, CRYING, AND HYPERVENTILATING WITH ANY MOVEMENT, REPOSITIONING [id number] INSTEAD OF Q2H. ON O2 @ 3 L/MIN NC WITH OXIMETRY SHOWING 90-94% WHILE SLEEPING. DRESSING CHANGED ON L ELBOW SKIN TEAR. SLEPT AGAIN FROM 1645 TO NOW.
--- NOTE | 2022-01-05 06:38 | NUR ---
ENDORSED IN REPORT THAT DUE TO PT HAVING WORSENING SEVERE PAIN DURING THE SHIFT PT IS NOW BEING TURNED Q4H. PT LBM 6/10 SUPPOSIROTY GIVEN BY PRIOR RN. THIS SHIFT PT GIVEN BROWN COW AND MILK OF MAGNESIA. PT DID HAVE A SMALL LIQUID BM. PT PREMEDICATED WITH DILAUDID 1 MG PRIOR TO CHANGING PT. PT STILL IN SEVERE PAIN AND YELLING AT STAFF TO STOP WE TURNED TO CLEAN HER. EXPLAINED TO PT WHAT WE WERE DOING HOWEVER PT UNABLE TO UNDERSTAND. ONCE DONE CLEANING AND TURNING PT SHE SHORTLY SETTLED DOWN AND WAS ABLE TO SLEEP. PT DID NOT RECEIVE ANY ADDITIONAL MEDICAITONS AFTER DILAUDID SHE WAS EITHER SLEEPING SOUNDLY OR AROUSING ONLY TO PAIN. THIS MORNING PT AROUSED TO PAIN BUT DUE TO STILL BEING SLEEPY SYNTHROID AND TYLENOL NOT GIVEN. PT ALSO HAD EPISODES IN WHICH HER OXYGEN DROPPED TO 80S% SHE WAS SLEEPING. WHEN PT MOVED SHE WOULD WAKE UP. SUSPECT PT MIGHT BE HAVING APNEIC EPISODES. OXYGEN INCREASED TO 3.5L VIA NC. PT ABDOMEN FIRM AND BOWEL SOUNDS HYPOACTIVE. DR. KHAN UPDATED REGARDING PT BOWEL STATUS. WILL ENDORSE TO ONCOMING RN.
--- NOTE | 2022-01-05 12:53 | NUR ---
pt sleepy very painful with movement. Review of strategies with pysical therapy. pt transitioned to comfort. Started on heat therapy per nursing request. Will also start some toradol.
--- NOTE | 2022-01-05 18:17 | NUR ---
Spiritual Care Visit. Pt. is resting in bed but reponds when I enter the room. Pt. is very pleasant, and much less discomfort from my previous visit. Pt. does not display evidene of visceral pain. Through a calming prersence and theraputic listening establish that the Pt. is a woman of livier. Establish rapport with the Pt. Pt. displays evidence of trust and engagement. Prayed for Pt. Pt. verbalized gratitude for the spiritual care visit.
--- NOTE | 2022-01-05 19:29 | NUR ---
SHIFT SUMMARY: PT A/O X 1 BEDREST. PT HAD EXTREME PAIN THIS AM WITH ANY MOVEMENT INCLUDING JUST RAISING HOB. SHE WAS TEARFUL WITH MOVEMENT AND CLENCHING FIST EVEN AFTER TAKING OXYCODONE AND RECEIVING DILAUDID 1 MG VIA IV. HER MEDICATIONS WERE HELD DUE TO THE FACT SHE WAS HAVING A DIFFICULT TIME STAYING AWAKE AND KEEPING HER MOUTH OPEN FOR HER MEDICATIONS SO THEY WERE HELD. PT WAS ALSEEP MOST OF THE DAY. AFTER PT WAS PLACED ON COMFORT CARE TORADOL GIVEN PER ORDER FOR COMFORT. TORADOL WAS MOST EFFECTIVE PT WAS ABLE TO BE REPOSITIONED AND HOB ELEVATED WITHOUT HER CRYING OUT IN PAIN AND SHE DID NOT CLENCH HER FISTS. PT WAS NOT ABLE TO EAT BREAKFAST OR LUNCH. SHE DID AWAKEN AT DINNER TIME AND WAS ALERT ENOUGH TO EAT BUT SHE DECLINED AFTER EACH ATTEMPT TO GET HER TO EAT. CONTINUED IV NS AT 25 TKO. PT SKIN TEAR TO LEFT ELBOW NEARLY HEALED AND DRESSING IS CDI SO LEFT IN PLACE. HEATING PAD USED FOR COMFORT 20 MINUTES ON AND 20 MINUTES OFF. PT REPORTED IT HELPED WITH PAIN CONTROL.
--- NOTE | 2022-01-05 23:33 | NUR ---
PATIENT CRYING IN PAIN. MEDICATION ADMINISTERED PER MAR
--- NOTE | 2022-01-06 04:12 | NUR ---
PATIENT WITH COMFORT CARE ORDERS. NO VS TAKEN. PAIN MEDICATION ADMINISTERED PER PATIENTS VERBAL CALLING OUT IN PAIN. CARMELA UNABLE TO ANSWER ANY COGNITIVE QUESTIONS. ONLY CRYING WHEN SHE WAS IN PAIN. PATIENT COMFORTABLE THE MAJORITY OF THE NIGHT. SANCHEZ PATENT WITH DARK YELLOW URINE. REPSOTIONED SHE WAS ABLE TO TOLERATE.
--- NOTE | 2022-01-06 10:51 | NUR ---
report called to [facility] on 01/06/22 at 3298
== END 2022-01-06 10:43 | disposition hospice, home (50) | DRG 552 ==
LOC: ER 13:21 → MEDS 21:27
PROVIDERS: Family Medicine; ADMIT Internal Medicine
DX: S32.10XA Unspecified fracture of sacrum, initial encounter for closed fracture (principal); S32.82XA Multiple fractures of pelvis without disruption of pelvic ring, initial encounter for closed fracture; S32.039A Unspecified fracture of third lumbar vertebra, initial encounter for closed fracture; S32.049A Unspecified fracture of fourth lumbar vertebra, initial encounter for closed fracture; N39.0 Urinary tract infection, site not specified; W18.30XA Fall on same level, unspecified, initial encounter; Z51.5 Encounter for palliative care; I10 Essential (primary) hypertension; E03.9 Hypothyroidism, unspecified; F03.90 Unspecified dementia, unspecified severity, without behavioral disturbance, psychotic disturbance, mood disturbance, and anxiety; E78.5 Hyperlipidemia, unspecified; Z86.718 Personal history of other venous thrombosis and embolism; J45.909 Unspecified asthma, uncomplicated; Z95.1 Presence of aortocoronary bypass graft; Z90.49 Acquired absence of other specified parts of digestive tract; Z90.710 Acquired absence of both cervix and uterus; Z90.721 Acquired absence of ovaries, unilateral; M81.0 Age-related osteoporosis without current pathological fracture; Z88.5 Allergy status to narcotic agent; Z79.899 Other long term (current) drug therapy; Z79.82 Long term (current) use of aspirin; S92.351A Displaced fracture of fifth metatarsal bone, right foot, initial encounter for closed fracture; F41.9 Anxiety disorder, unspecified; E78.00 Pure hypercholesterolemia, unspecified
CPT/HCPCS: 51702; 70450; 72100; 73522; 74177; 80053; 81001; 84484; 85025; 87086; 93005; 93010; 94640; 94664; 94762; 96372-59; 97110; 97162; 97165; 97530; 99285-25; A9270; J1170; J1650; J1885; J3010; J7030; Q9967